=== PATIENT | female | born 1980 | race Caucasian/White ===

== ENCOUNTER 2017-05-08 22:35 | Emergency (ER) | payer OTHER ==
[~2017-05-08] VITALS: Ht 160 cm; Wt 117.9 kg
[~2017-05-08 22:35] MED LIST: NORCO1 TA2 PO; XANAX XR1 M1 PO
[2017-05-08 23:14] VITALS: BP 113/70
== END 2017-05-09 01:26 | disposition home or self-care (01) ==
LOC: ED 22:35
DX: M72.2 Plantar fascial fibromatosis (principal); M54.42 Lumbago with sciatica, left side; F99 Mental disorder, not otherwise specified; Z79.899 Other long term (current) drug therapy
CPT/HCPCS: J2270; J7512; Q0162

== ENCOUNTER 2017-08-12 19:19 | Emergency (ER) | payer OTHER ==
[~2017-08-12] VITALS: Ht 162.6 cm; Wt 121.6 kg
[2017-08-12 21:06] VITALS: BP 121/84
== END 2017-08-12 21:06 | disposition home or self-care (01) ==
LOC: ED 19:19
DX: M54.5 Low back pain (principal); Z90.49 Acquired absence of other specified parts of digestive tract
CPT/HCPCS: J1170; Q0162

== ENCOUNTER 2018-01-12 21:26 | Emergency (ER) | payer OTHER ==
[~2018-01-12] VITALS: Ht 160 cm; Wt 120.2 kg
[2018-01-13 02:17] VITALS: BP 115/76
== END 2018-01-13 02:17 | disposition home or self-care (01) ==
LOC: ED 21:26
DX: G89.29 Other chronic pain (principal); M54.5 Low back pain
CPT/HCPCS: J2270

== ENCOUNTER 2018-03-21 15:30 | Emergency (ER) | payer OTHER ==
[~2018-03-21] VITALS: Ht 154.9 cm; Wt 125.2 kg
[2018-03-21 15:45] VITALS: Ht 154.9 cm; Wt 125.2 kg
[2018-03-21 18:48] VITALS: BP 127/74
== END 2018-03-21 18:48 | disposition home or self-care (01) ==
LOC: ED 15:30
DX: S13.9XXA Sprain of joints and ligaments of unspecified parts of neck, initial encounter (principal); S43.401A Unspecified sprain of right shoulder joint, initial encounter; S39.012A Strain of muscle, fascia and tendon of lower back, initial encounter; Z90.49 Acquired absence of other specified parts of digestive tract; W19.XXXA Unspecified fall, initial encounter; Y93.89 Activity, other specified; Y92.89 Other specified places as the place of occurrence of the external cause; Y99.8 Other external cause status
CPT/HCPCS: J1885; J7030

== ENCOUNTER 2018-06-25 04:53 | Emergency (ER) | payer OTHER ==
[~2018-06-25] VITALS: Ht 160 cm; Wt 127.0 kg
[2018-06-25 05:16] VITALS: BP 113/75; Ht 160 cm; Wt 127.0 kg
== END 2018-06-25 06:57 | disposition home or self-care (01) ==
LOC: ED 04:53
DX: R11.2 Nausea with vomiting, unspecified (principal); R19.7 Diarrhea, unspecified; R10.13 Epigastric pain; Z90.89 Acquired absence of other organs
CPT/HCPCS: J2270; Q0162

== ENCOUNTER 2018-10-06 17:57 | Emergency (ER) | payer OTHER ==
[~2018-10-06] VITALS: Ht 165.1 cm; Wt 113.4 kg
[2018-10-06 18:05] VITALS: Ht 165.1 cm; Wt 113.4 kg
[2018-10-06 19:25] VITALS: BP 95/63
== END 2018-10-06 19:25 | disposition home or self-care (01) ==
LOC: ED 17:57
DX: S16.1XXA Strain of muscle, fascia and tendon at neck level, initial encounter (principal); G89.29 Other chronic pain; M54.9 Dorsalgia, unspecified; F41.9 Anxiety disorder, unspecified; F32.9 Major depressive disorder, single episode, unspecified; G56.00 Carpal tunnel syndrome, unspecified upper limb; Z98.890 Other specified postprocedural states; Z90.49 Acquired absence of other specified parts of digestive tract; V89.2XXA Person injured in unspecified motor-vehicle accident, traffic, initial encounter; Y93.I9 Activity, other involving external motion; Y92.413 State road as the place of occurrence of the external cause; Y99.8 Other external cause status
CPT/HCPCS: J1885